=== PATIENT | female | born 1960 | race Caucasian/White ===

== ENCOUNTER 2020-07-27 08:47 | Outpatient (REF) | payer OTHER, SELFPAY ==
[2020-07-27 11:28] LABS: MANUAL DIFF FLAG NO
[2020-07-27 11:35] LABS: Basophils Percent Auto 0.7 % (0-2); Eosinophils Absolute Auto 0.2 X10*3/uL (0.0-0.4); Eosinophils Percent Auto 3.1 % (0-4); Hematocrit 39.1 % (37-47); Hemoglobin 12.6 g/dl (12.0-16.0); Imm Gran Abs Auto 0.03 X10*3/uL (0.00-0.03); Imm Gran Pct Auto 0.5 % (0.0-0.4); Lymphocytes Percent Auto 17.3 % (20-40); Mean Corpuscular HGB Conc 32.2 g/dl (31.0-35.0); Mean Corpuscular Volume 99.2 fL (80-98); Mean Platelet Volume 9.4 fL (9.4-12.3); Monocytes Absolute Auto 0.7 X10*3/uL (0.1-1.2); Monocytes Percent Auto 12.3 % (2-11); Neutrophils Absolute Auto 3.9 X10*3/uL (2.0-8.3); Neutrophils Percent Auto 66.1 % (45-73); Platelet Count 340 X10*3/uL (160-400); Red Blood Count 3.94 X10*6/uL (4.20-5.50); Red Cell Distribution Width 13.4 % (11.0-16.0); White Blood Count 5.8 X10*3/uL (4.8-10.8)
[2020-07-27 12:08] LABS: Alanine Aminotransferase 18 U/L (0-31); Albumin Level 4.2 g/dL (3.5-5.0); Alkaline Phosphatase 58 U/L (39-117); Anion Gap 12 (12-20); Aspartate Amino Transferase 23 U/L (5-31); Bilirubin Total 0.4 mg/dL (0.0-1.0); Blood Urea Nitrogen 18 mg/dL (9-16); Calcium 9.6 mg/dL (8.4-10.2); Carbon Dioxide 27 mmol/L (22-29); Chloride 105 mmol/L (96-108); Estimated Glomerular Filt Rate 58; Glucose Random 93 mg/dL (60-115); Potassium 5.1 mmol/l (3.3-5.1); Sodium 139 mmol/L (135-145); Total Protein 7.5 g/dL (6.5-8.0)
[2020-07-27 12:14] LABS: Ferritin 69 ng/mL (10-250); TSH reflex Free T4 0.82 mIU/mL (0.32-4.0)
[2020-07-27 12:53] LABS: Vitamin B12 405 pg/mL (200-900)
== END 2020-07-27 08:48 | disposition home or self-care (01) ==
LOC: HO.HMGCLDS 08:47
PROVIDERS: PCP Internal Medicine; Visit Provider Internal Medicine
DX: I10 Essential (primary) hypertension (principal); E66.01 Morbid (severe) obesity due to excess calories; Z68.41 Body mass index [BMI] 40.0-44.9, adult; R79.89 Other specified abnormal findings of blood chemistry; F33.40 Major depressive disorder, recurrent, in remission, unspecified
CPT/HCPCS: 36415; 80053; 82607; 82728; 84443; 85025

== ENCOUNTER 2020-08-08 10:25 | Outpatient (REF) | payer OTHER, SELFPAY ==
--- NOTE | 2020-08-08 | MM_ITS ---
EXAMINATION: MM SCREENING DIGITAL BREAST TOMOSYNTHESIS, BILATERAL CLINICAL INFORMATION: Screening. Asymptomatic. Family history breast cancer in grandmother. The lifetime risk of breast cancer based on the Tyrer-Cuzick Model is 10%. COMPARISON: Mammography: 08/03/2019, 04/21/2018 TECHNIQUE: Digital breast tomosynthesis is performed in both the craniocaudal and mediolateral oblique views along with computer-aided detection (CAD). Synthesized 2D images are generated from the tomosynthesis. Additional right CC view is provided. FINDINGS: There are scattered areas of fibroglandular density (ACR BI-RADS breast composition Category b). There are no significant masses, abnormal calcifications, or other abnormalities. There are some punctate round calcifications mid upper outer right breast similar to prior studies. The axilla and skin contours are unremarkable. IMPRESSION: No significant changes from prior exams. ASSESSMENT: BI-RADS 2: Benign RECOMMENDATION: Routine annual mammography screening. This patient's information was entered into a reminder system with a target due date for their next mammogram.
== END 2020-08-08 10:26 | disposition home or self-care (01) ==
LOC: HO.MAMMO 10:25
PROVIDERS: Visit Provider Internal Medicine
DX: Z12.31 Encounter for screening mammogram for malignant neoplasm of breast (principal)
CPT/HCPCS: 77063; 77067

== ENCOUNTER 2020-10-15 14:24 | Outpatient (REF) | payer OTHER, SELFPAY | END 2020-10-15 14:25 | disposition home or self-care (01) | LOC: HO.LAB 14:24 | PROVIDERS: PCP Internal Medicine; Visit Provider Internal Medicine | DX: Z20.828 Contact with and (suspected) exposure to other viral communicable diseases (principal) | CPT/HCPCS: C9803; U0003 ==

== ENCOUNTER 2020-11-02 17:03 | Outpatient (REF) | payer OTHER, SELFPAY | END 2020-11-02 17:04 | disposition home or self-care (01) | LOC: HO.LAB 17:03 | PROVIDERS: Visit Provider Internal Medicine | DX: Z20.822 Contact with and (suspected) exposure to COVID-19 (principal) | CPT/HCPCS: 36415; C9803; U0003 ==

== ENCOUNTER 2021-02-08 10:06 | Outpatient (REF) | payer OTHER, SELFPAY ==
[2021-02-08 10:16] LABS: COVID-19 Test Positive (Negative)
== END 2021-02-08 10:07 | disposition home or self-care (01) ==
LOC: HO.LAB 10:06
PROVIDERS: Visit Provider Internal Medicine
DX: Z20.822 Contact with and (suspected) exposure to COVID-19 (principal)
CPT/HCPCS: 36415; 87635; C9803

== ENCOUNTER 2022-06-14 11:02 | Outpatient (REF) | payer OTHER, SELFPAY ==
[2022-06-14 14:11] LABS: MANUAL DIFF FLAG NO
[2022-06-14 14:21] LABS: Basophils Percent Auto 0.4 % (0-2); Eosinophils Absolute Auto 0.1 X10*3/uL (0.0-0.4); Hematocrit 37.4 % (37.0-47.0); Hemoglobin 12.1 g/dl (12.0-16.0); Imm Gran Abs Auto 0.02 X10*3/uL (0.00-0.03); Imm Gran Pct Auto 0.3 % (0.0-0.4); Lymphocytes Absolute Auto 1.1 X10*3/uL (1.2-4.9); Lymphocytes Percent Auto 14.4 % (20-40); Mean Corpuscular HGB Conc 32.4 g/dl (31.0-35.0); Mean Corpuscular Hemoglobin 30.6 pg (27.0-33.0); Mean Corpuscular Volume 94.4 fL (80.0-98.0); Mean Platelet Volume 9.6 fL (9.4-12.3); Monocytes Absolute Auto 0.7 X10*3/uL (0.1-1.2); Monocytes Percent Auto 8.7 % (2-11); Neutrophils Absolute Auto 5.9 x10*3/uL (2.0-8.3); Neutrophils Percent Auto 75.2 % (45-73); Platelet Count 376 X10*3/uL (160-400); Red Blood Count 3.96 X10*6/uL (4.20-5.50); White Blood Count 7.8 X10*3/uL (4.8-10.8)
[2022-06-14 14:33] LABS: Alanine Aminotransferase 12 U/L (0-31); Albumin Level 4.1 g/dL (3.5-5.0); Alkaline Phosphatase 61 U/L (39-117); Anion Gap 15 (12-20); Aspartate Amino Transferase 20 U/L (5-31); Bilirubin Total 0.4 mg/dL (0.0-1.0); Blood Urea Nitrogen 27 mg/dL (9-16); Calcium 10.5 mg/dL (8.4-10.2); Carbon Dioxide 28 mmol/L (22-29); Chloride 101 mmol/L (96-108); Estimated Glomerular Filt Rate 47; Glucose Random 104 mg/dL (60-115); Potassium 4.4 mmol/L (3.3-5.1); Sodium 140 mmol/L (135-145); Total Protein 7.6 g/dL (6.5-8.0)
[2022-06-16 04:45] LABS: LDL Cholesterol Direct 84 mg/dL (<100)
== END 2022-06-14 11:03 | disposition home or self-care (01) ==
LOC: HO.HMGCLDS 11:02
PROVIDERS: PCP Internal Medicine; Visit Provider Internal Medicine
DX: R10.10 Upper abdominal pain, unspecified (principal); R11.10 Vomiting, unspecified
CPT/HCPCS: 36415; 80053; 83721; 85025

== ENCOUNTER → 2022-06-20 07:59 | Outpatient (BNVA) | payer OTHER, SELFPAY | PROVIDERS: PCP Internal Medicine; Referring Provider Internal Medicine; Visit Provider Internal Medicine | DX: R10.10 Upper abdominal pain, unspecified (principal); R63.4 Abnormal weight loss; R11.10 Vomiting, unspecified; M06.9 Rheumatoid arthritis, unspecified; Z98.890 Other specified postprocedural states; Z87.19 Personal history of other diseases of the digestive system | CPT/HCPCS: 99202 ==

== ENCOUNTER 2022-07-08 07:54 | Outpatient (REF) | payer OTHER, SELFPAY ==
--- NOTE | ~2022-07-08 | US_ITS ---
EXAMINATION: US ABDOMEN COMPLETE CLINICAL INFORMATION: Abdominal pain. COMPARISON: None TECHNIQUE: Real-time imaging of the abdominal viscera. FINDINGS: PANCREAS: Normal. ABDOMINAL AORTA: The proximal, mid, and distal segments are normal in caliber. INFERIOR VENA CAVA: Visualized portions are normal. LIVER: There is a small cyst in the left lobe measuring 1 x 0.6 x 0.7 cm. The liver is normal in size. The liver contour is normal. Parenchymal echogenicity is normal. There is no intrahepatic biliary duct dilatation seen. GALLBLADDER: Normal. The gallbladder is physiologically distended without evidence of stones, sludge, polyps, wall thickening or pericholecystic fluid. COMMON BILE DUCT: Normal in caliber measuring 0.3 cm in diameter. RIGHT KIDNEY: Normal. No hydronephrosis. No renal calculi or focal parenchymal lesions. The kidney measures 12 cm in maximum dimension. LEFT KIDNEY: Normal. No hydronephrosis. No renal calculi or focal parenchymal lesions. The kidney measures 11 cm in maximum dimension. SPLEEN: Normal. The spleen measures 9 cm in maximum dimension. FREE FLUID: None. US/US abdomen complete IMPRESSION: Small liver cyst otherwise unremarkable exam.
--- NOTE | ~2022-07-08 | US_ITS ---
EXAMINATION: ULTRASOUND SMA CLINICAL INFORMATION: Abdominal pain COMPARISON: None TECHNIQUE: Grayscale and color evaluation of the mesenteric vessels including waveform spectral analysis. Imaging of the celiac axis was done with the patient in supine and upright positions. FINDINGS: The abdominal aorta is normal in caliber. Peak Systolic velocity measures 116 cm per second proximal to the SMA and 123 cm/s distal to the SMA. Celiac artery peak systolic velocity is elevated with inspiration in the supine position measuring 243 cm/s. This with inspiration with the patient in the erect position measuring 154 cm/s. SMA peak systolic velocities are normal measuring 130, 141 and 99 cm/s proximally, in the midportion and distally. PAULINA peak systolic velocity is normal measuring 139 cm/s. Splenic artery systolic velocity is normal measuring 154 cm/s. Hepatic artery peak systolic velocity is normal measuring 104 cm/s. US/US SMA IMPRESSION: Increased peak systolic velocity in the celiac artery which decreases with the patient upright questionable for celiac artery compression syndrome. Otherwise normal mesenteric arterial ultrasound exam.
== END 2022-07-08 07:55 | disposition home or self-care (01) ==
LOC: HO.HMGCX 07:54
PROVIDERS: Absent Provider Internal Medicine; PCP Internal Medicine; Visit Provider Internal Medicine
DX: R10.10 Upper abdominal pain, unspecified (principal); R11.10 Vomiting, unspecified; R63.4 Abnormal weight loss
CPT/HCPCS: 76700; 93976

== ENCOUNTER 2022-07-14 11:10 | Day surgery (SDC) | payer OTHER, SELFPAY ==
[2022-07-14 08:27] VITALS: BMI 36.8
[2022-07-14 11:31] VITALS: BP 119/90; PULSE 76; RESP 18; TEMP 36.1; O2SAT 98
[2022-07-14] MEDS: Lactated Ringers 1,000 ML 50 ML IVCONT (11:58)
--- NOTE | 2022-07-14 12:41 | MHC.SHP ---
Pre-Procedural Eval Section A Date of Service: 07/14/22 The patient is an INPATIENT: No The History & Physical has been completed within 30 days and I have reviewed it.: Yes Section B Chief Complaint: Abdominal pain, weight loss, personal hx of polyps Allergies: Allergies Allergy/AdvReac Type Severity Reaction Status Date / Time No Known Allergies Allergy Verified 06/20/22 08:07 Plan Diagnosis/Plan: Unchanged I have reviewed the history and physical and performed a pertinent physical examination on my patient. No changes have occurred unless specified.
--- NOTE | 2022-07-14 13:49 | HO.ANESPROP2 ---
HPI - Anesthesia Eval Consult details Narrative: 62 F for egd and colonoscopy FOR[facility] Active Problems Active Problems: All Active Problems (Updated 06/14/22 @ 11:02 by Benson Marroquin MD) Recurrent vomiting (Acute) Upper abdominal pain (Acute) Foul smelling urine (Acute) Vitamin D deficiency (Acute) Acute rheumatic arthritis (Acute) Hypertension, essential (Acute) Depression, major, recurrent (Acute) Past Medical History Medical History Acute rheumatic arthritis Depression, major, recurrent Hypertension, essential Vitamin D deficiency Family History Family History Father Myocardial infarction Mother Hyperlipidemia Brother No problems noted. Sister No problems noted. Family history of problems with anesthesia: No Surgical History Surgical History History of foot surgery History of Problems with Anesthesia: No Social History Social History Housing: House Alcohol intake: current Alcohol intake frequency: holidays/special occasions only Patient Tobacco Use Status: Former Tobacco user Tobacco use type: Cigarette Years Smoked: 15 years e-Cigarette/Vaping Use: Never Used Are you DNR?: No Advance Directives: No Advance Directives Information Provided: Yes Recently lost weight without trying: No Nutrition Risks: No Nutritional Risk Current occupational status: unemployed Cognitive needs: No Hearing needs: No Vision needs: Yes Meds Allergies Allergy/AdvReac Type Severity Reaction Status Date / Time No Known Allergies Allergy Verified 06/20/22 08:07 Active Medications: Current Medications Lactated Ringer's (Lr) 1,000 mls @ 50 mls/hr IVCONT .Q20H IVORY Last Admin: 07/14/22 11:58 Dose: 50 mls/hr Home Medications Medication Instructions Recorded Confirmed Last Taken Type cyclobenzaprine 10 mg tablet 10 mg PO BEDTIME 08/14/20 07/14/22 07/10/22 History folic acid 1 mg tablet 1 mg PO DAILY 08/14/20 07/14/22 07/14/22 History hydroxychloroquine 200 mg tablet 200 mg PO DAILY 08/14/20 07/14/22 07/14/22 History tofacitinib 5 mg tablet 5 mg PO BID 08/14/20 07/14/22 07/14/22 History tramadol 50 mg tablet 50 - 100 mg PO BEDTIME PRN pain 06/20/22 07/14/22 07/10/22 History Exam Exam Date and Time: July 14, 2022 1349 Height,Weight and Vital Signs: Height 5 ft 7 in Weight 235 lb Last Vital Signs Temp 97 F 07/14/22 11:31 Pulse 76 07/14/22 11:31 Resp 18 07/14/22 11:31 BP 119/90 H 07/14/22 11:31 Pulse Ox 98 07/14/22 11:31 O2 Del Method 07/14/22 11:31 Airway Mallampati Class: III TM Dist: >3cm Neck ROM: Full Loose/Missing/Broken Teeth: Yes Assessment and Plan Assessment Anesthesia Assessment: Anesthesia Plan Discussed and Chart Reviewed Final Anesthetic Review Family History of Problems with Anesthesia: No History of Problems with Anesthesia: No NPO: Yes ASA Class: II Final Preanesthetic Review: No Changes in Pt Med Stat, Meds/Allgs Chart Reviewed, Consent Obtained/Reviewed and Anes Risks/Benef Reviewed Patient Risk: Low Procedure Risk: Low Anesthetic Plan Anesthetic Plan: MAC: Disposition: Standard PACU
--- NOTE | 2022-07-14 13:50 | P.OP_ITS ---
Operative Note Operative Note Date of Service: 07/14/22 Narrative: Procedure: Esophagogastroduodenoscopy and colonoscopy Endoscopist: Johanny Dye MD Indication: Abdominal pain, weight loss, personal hx of polyps Anesthesia Provider: Dr Helio Matt Anesthesia Type: MAC ?? EGD Procedure:?? The procedure, indications, preparation and potential complications were reviewed with the patient, who indicated understanding and gave written informed consent to proceed. A physical exam was performed. The endoscope was introduced through the mouth, and advanced to the second part of duodenum. The mucosa was carefully examined on slow withdrawal of the endoscope. The patient tolerated the procedure well. There were no immediate complications.? ? EGD Findings:? * Esophagus:? The Z line was at 35 cm. The Z line was irregular with two salmon colored tongues suspicious for Willett's esophagus C0M1. Cold forceps biopsies were taken from these tongues at 34 cm and sent for pathology. There was a small 3 cm hiatal hernia, diaphragmatic pinch was at 38 cm * Stomach:? Normal mucosa was noted in the stomach. Random gastric biopsies were taken to rule out H Pylori infection. * Duodenum:? There was 1 cm [place] 1b ulcer noted in posterior duodenal bulb causing edema and narrowing of the sweep. The sweep could be traversed with the scope using water jet as a buffer. The scope was removed and distal cap was attached for better visualisation of the ulcer. It was then reintroduced and bipolar epinephrine injection was attempted through the injector needle of gold probe but could not be done due to equipment malfunction. Bipolar cautery was applied to the oozing vessel with hemostasis. The ulcer bed was agitated with water jet to confirm no further bleeding. Colonoscopy procedure: The patient then turned around for the colonoscopy. A digital rectal exam was performed which was normal. The colonoscope was then inserted through the anus and advanced through the colon to the cecum at 60 cm. Mucosa was carefully examined under high definition white light as the instrument was slowly withdrawn in a retrograde panoramic fashion. Retroflexion was performed in rectum. The procedure was not difficult. There were no immediate obvious complications. The quality of the prep was BBPS: 3+3+3 = excellent Withdrawal time 8 minutes. Limitations: No limitations. Findings: Mucosa: Normal to cecum. Protruding lesions: * Medium external hemorrhoids without stigmata of recent bleeding. Excavated lesions: * Small mouthed diverticulosis of left colon. Other findings: * Evidence of colo-colonic anastomosis in sigmoid colon. 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 ? Impressions:? * Suspicious for Willett's esophagus (biopsy) * Hiatal hernia * Normal stomach (biopsy) * [place] 1b duodenal bulb ulcer (cautery) * Surgical anastomosis in sigmoid colon * Mild left sided diverticulosis * Hemorrhoids ?? Recommendations:?? * Follow biopsy results. Our office will call or send a letter with results within 7-10 days. * INCREASE omeprazole. Take 80mg BID for 3 days and then 40mg BID for 8 weeks * Patient has also been given pantoprazole 80mg IVP and liquid carafate 1g in post op * Liquid diet today and advance to regular diet tomorrow if no GIB * Instructions to return to ER for any GI bleeding carefully reviewed with patient * If H pylori +, patient will be prescribed eradication therapy followed by test of cure. * Avoid NSAIDs. * Colonoscopy in 7-10 years for CRC screening * Patient has also been referred to Vascular surgery for ? celiac stenosis based on duplex study. Will follow up. * Above has been reviewed with the patient. Educational hand outs were provided at discharge.
[2022-07-14 13:55] VITALS: BP 140/54; PULSE 69; RESP 20; TEMP 36.4; O2SAT 98
[2022-07-14 14:25] VITALS: BP 155/82; PULSE 63; RESP 18; TEMP 36.4; O2SAT 95
[2022-07-14] MEDS: Pantoprazole Sodium 40 MG/10 ML VIAL 80 MG IVPUSH (14:25)
[2022-07-14] MEDS: Sucralfate Oral Suspension 1 GM/10 ML ORAL.SUSP PO (14:36)
== END 2022-07-14 14:56 | disposition home or self-care (01) ==
PROVIDERS: PCP Internal Medicine; Visit Provider Internal Medicine
PROC: (CPT 45378; principal; 2022-07-14 12:40)
DX: R10.10 Upper abdominal pain, unspecified (principal); Z86.010 Personal history of colon polyps; K57.30 Diverticulosis of large intestine without perforation or abscess without bleeding; Z90.49 Acquired absence of other specified parts of digestive tract; Z98.0 Intestinal bypass and anastomosis status; K64.4 Residual hemorrhoidal skin tags; K26.9 Duodenal ulcer, unspecified as acute or chronic, without hemorrhage or perforation; R11.10 Vomiting, unspecified; Z87.19 Personal history of other diseases of the digestive system; R63.4 Abnormal weight loss; Z68.36 Body mass index [BMI] 36.0-36.9, adult; K44.9 Diaphragmatic hernia without obstruction or gangrene; I10 Essential (primary) hypertension; M06.9 Rheumatoid arthritis, unspecified; E55.9 Vitamin D deficiency, unspecified; F33.9 Major depressive disorder, recurrent, unspecified; Z79.899 Other long term (current) drug therapy; Z87.891 Personal history of nicotine dependence
CPT/HCPCS: 45378; 43239; 88305; 88342; J0171

== ENCOUNTER → 2022-07-25 09:25 | Outpatient (BNVA) | payer OTHER, SELFPAY | PROVIDERS: PCP Internal Medicine; Visit Provider Internal Medicine | DX: K26.9 Duodenal ulcer, unspecified as acute or chronic, without hemorrhage or perforation (principal); K22.70 Barrett's esophagus without dysplasia; I77.1 Stricture of artery; Z98.890 Other specified postprocedural states | CPT/HCPCS: 99212 ==

== ENCOUNTER → 2022-08-18 10:02 | Outpatient (BNVA) | payer OTHER, SELFPAY | PROVIDERS: PCP Internal Medicine; Visit Provider Surgery Vascular Surgery | DX: R10.10 Upper abdominal pain, unspecified (principal) | CPT/HCPCS: 99202 ==

== ENCOUNTER 2023-01-21 10:56 | Outpatient (REF) | payer OTHER, SELFPAY ==
[2023-01-21 12:25] LABS: Hematocrit 35.5 % (37.0-47.0); Hemoglobin 11.4 g/dl (12.0-16.0); Mean Corpuscular HGB Conc 32.1 g/dl (31.0-35.0); Mean Corpuscular Hemoglobin 30.7 pg (27.0-33.0); Mean Corpuscular Volume 95.7 fL (80.0-98.0); Mean Platelet Volume 9.3 fL (9.4-12.3); Platelet Count 370 X10*3/uL (160-400); Red Blood Count 3.71 X10*6/uL (4.20-5.50); Red Cell Distribution Width 13.5 % (11.0-16.0); White Blood Count 5.4 X10*3/uL (4.8-10.8)
[2023-01-21 12:55] LABS: Alanine Aminotransferase 36 U/L (0-31); Albumin Level 3.9 g/dL (3.5-5.0); Alkaline Phosphatase 69 U/L (39-117); Anion Gap 13 (12-20); Aspartate Amino Transferase 43 U/L (5-31); Bilirubin Total 0.5 mg/dL (0.0-1.0); Blood Urea Nitrogen 16 mg/dL (9-16); Calcium 9.6 mg/dL (8.4-10.2); Carbon Dioxide 28 mmol/L (22-29); Chloride 105 mmol/L (96-108); Estimated Glomerular Filt Rate > 60; Glucose Random 83 mg/dL (60-115); Potassium 5.2 mmol/L (3.3-5.1); Sodium 141 mmol/L (135-145); Total Protein 7.1 g/dL (6.5-8.0)
[2023-01-22 15:44] LABS: LDL Cholesterol Direct 111 mg/dL (<100)
== END 2023-01-21 10:57 | disposition home or self-care (01) ==
LOC: HO.HMGCLDS 10:56
PROVIDERS: Absent Provider Internal Medicine; PCP Internal Medicine; Visit Provider Internal Medicine
DX: F33.9 Major depressive disorder, recurrent, unspecified (principal); I00 Rheumatic fever without heart involvement; K26.9 Duodenal ulcer, unspecified as acute or chronic, without hemorrhage or perforation; I10 Essential (primary) hypertension
CPT/HCPCS: 36415; 80053; 83721; 85027

== ENCOUNTER → 2023-01-23 09:00 | Outpatient (BNVA) | payer OTHER, SELFPAY | PROVIDERS: PCP Internal Medicine; Visit Provider Internal Medicine | DX: K26.9 Duodenal ulcer, unspecified as acute or chronic, without hemorrhage or perforation (principal); K22.70 Barrett's esophagus without dysplasia; I77.1 Stricture of artery; R79.89 Other specified abnormal findings of blood chemistry | CPT/HCPCS: 99212 ==

== ENCOUNTER 2024-04-19 14:50 | Outpatient (AMB) | payer OTHER, SELFPAY ==
--- NOTE | 2024-04-19 14:54 | A.OFFPC_ITS ---
Vital Signs 04/19/24 14:59 Height 5 ft 7 in Weight 279 lb BMI 43.7 BP 130/90 H Blood Pressure Location Rt brachial Position Sitting Pulse 94 Pulse Source Pulse Oximeter Pulse Oximetry (%) 98 Oxygen Delivery Method Room Air Intake Visit Reasons: Annual PE Allergies No Known Allergies Allergy (Verified 04/19/24 14:59) Medication List - Last Reconciled 04/19/24 by Benson Marroquin MD atenolol 25 mg PO DAILY 15 days cyclobenzaprine 10 mg PO BEDTIME PRN folic acid 1 mg PO DAILY hydroxychloroquine 200 mg PO DAILY methotrexate sodium 8 mg PO QWEEK multivitamin 1 tab PO DAILY omeprazole 20 mg PO DAILY paroxetine HCl 20 mg PO QAM 15 days tofacitinib 5 mg PO BID tramadol 50 - 100 mg PO BEDTIME PRN Tobacco use date assessed: 04/19/24 Dental Screening Dental Screen Date: 04/19/24 Did you have a dental visit in the last 12 months?: Yes Did you have a dental problem in the last 6 months where you did not have access to dental care?: No Was dental information given to patient?: Patient has dentist HPI Annual PE HPI Details Patient is 64-year-old female came in for physical exam Patient was last seen November of last year she was supposed to come in for follow-up in six-month but she did not Only medication from this office is atenolol 25 mg and paroxetine for anxiety/depression Blood pressure is 130/90 with pulse of 94 Last visit with assistant manager pt Dr. Chang was 12 of April Consultation reviewed, labs were ordered through Rheumatology Colonoscopy was June of [address] Dye Gastroenterology, patient also had EGD done at that time She is due for OBGYN visit, patient says that she will book her own appointment Due for mammogram, order placed Last set of lab in the chart from this office is from January of last year her potassium was 5.2 at that time Her other medications are omeprazole 20 mg from Gastroenterology Cyclobenzaprine 10 mg at bedtime folic acid hydrochloroquine 200 mg daily Methotrexate 8 mg once a week from Rheumatology Patient is morbidly obese with BMI of 43.7 having difficulty losing weight Patient have varicose veins, she has started having swelling of her ankles left more than right I have sent frusemide 20 mg tablet patient may take that as needed. FORMERLY [facility] Medical History Vitamin D deficiency Acute rheumatic arthritis Hypertension, essential Depression, major, recurrent Surgical History Hx of colonoscopy History of esophagogastroduodenoscopy (EGD) History of foot surgery Family History Father Myocardial infarction Mother Hyperlipidemia Brother No problems noted. Sister No problems noted. Paternal Grandfather Colon cancer Social History Housing: House Alcohol intake: current Alcohol intake frequency: holidays/special occasions only Patient Tobacco Use Status: Former Tobacco user Tobacco use type: Cigarette Years Smoked: 15 years e-Cigarette/Vaping Use: Never Used service: No Current occupational status: unemployed Cognitive needs: No Hearing needs: No Vision needs: Yes Questionnaire PHQ-9 Over the last 2 weeks, how often have you been bothered by any of the following problems? 85907 - PHQ-9 Billing: Patient declined-do not bill Source: Developed by Drs. Steve Birmingham, Desiree Meek, Waqar St and colleagues, with an educational gi from [employer]. Thrive Questionnaire Date Thrive assessed: 12/14/22 AUDIT C Alcohol Use Questionnaire (AUDIT-C) 1. How often do you have a drink containing alcohol?: Never 3. How often do you have six or more drinks on one occasion?: Never Total Score: 0 Score Reviewed/Action Taken: No DESTINY-7 AMB Questionnaire DESTINY-7 Date DESTINY - 7 assessed: 12/14/22 Source: Developed by Drs. Steve Birmingham, Waqar Brown and colleagues, with an educational gi from [employer]. Review of Systems Const Denies chills, Denies fever(s) and Denies headache(s) Eyes Denies blurry vision ENT Denies headache(s), Denies nasal discharge, Denies nasal obstruction, Denies odynophagia and Denies sinus pain Card Denies chest pain at rest and Denies chest pain with activity Resp Denies cough and Denies hemoptysis GI Denies diarrhea, Denies odynophagia, Denies vomiting and Denies hematemesis Reports as per HPI Musc Denies abnormal gait Skin/Breast Reports as per HPI Neuro Denies Neuro-related abnormal movements, Denies Abnormal speech present, Denies abnormal gait, Denies headache(s) and Denies Sensory deficit (Neuro) Psych Denies mood swings and Denies paranoia Endo Reports as per HPI Sean/Lymph Reports as per HPI Aller/Immun Reports as per HPI Physical exam (Primary Care) Vital Signs: Last Vital Signs Pulse 94 04/19/24 14:59 BP 130/90 H 04/19/24 14:59 Pulse Ox 98 04/19/24 14:59 Oxygen Delivery Method Room Air 04/19/24 14:59 BMI result Body Mass Index 43.7 Tobacco/Smoking Status: Tobacco use Status Tobacco use date assessed 04/19/24 04/19/24 15:02 Patient Tobacco Use Status Former Tobacco user 04/19/24 14:55 Tobacco use type Cigarette 04/19/24 14:55 e-Cigarette/Vaping Use Never Used 04/19/24 14:55 Thrive Assessment: Date of Thrive Assessment Date Thrive assessed 12/14/22 04/19/24 14:55 Const General: cooperative, comfortable and no acute distress Orientation/consciousness: patient oriented x3 HENMT Head: Yes normocephalic and Yes atraumatic Eyes General: appearance normal, both eyes and all related structures Pupils: Equal, round and reactive pupils present EOM: EOMs intact bilaterally Neck Neck: Yes supple and No lymphadenopathy Thyroid: Thyroid normal Lymphatic: no lymphadenopathy noted Resp Effort & Inspection: normal respiratory effort and able to speak in complete sentences Auscultation: clear to auscultation bilaterally Cardio Heart sounds: S1 normal heart sound present and S2 normal heart sound present GI Palpation (GI): Soft to palpation and nontender Auscultation: normal bowel sounds General: Yes no CVA tenderness Back/Spine/Pelvis Back: no CVA tenderness Skin General skin exam: elasticity normal and turgor normal Neuro General: patient oriented x3 and gait normal Cranial nerves: Yes Equal, round and reactive pupils present Speech: No Abnormal speech present Sensory Exam: No Sensory deficit (Neuro) Coordination: tandem gait normal and Romberg test negative Extrem Other: Superficial visible varicosities present both side, mild swelling noticed left ankle Assessment and Plan Assessment & Plan (1) Encounter for general adult medical examination with abnormal findings: Code(s): Z00.01 - Encounter for general adult medical examination with abnormal findings (2) Hypertension, essential: Code(s): I10 - Essential (primary) hypertension (3) Depression, major, recurrent: Code(s): F33.9 - Major depressive disorder, recurrent, unspecified Qualifiers: Active/Remission status: in full remission Qualified Code(s): F33.42 - Major depressive disorder, recurrent, in full remission (4) Rheumatoid arthritis: Code(s): M06.9 - Rheumatoid arthritis, unspecified Qualifiers: Rheumatoid arthritis location: other site Rheumatoid factor presence: unspecified presence Qualified Code(s): M06.9 - Rheumatoid arthritis, unspecified (5) Barretts esophagus: Code(s): K22.70 - Willett's esophagus without dysplasia Qualifiers: Willett's esophagus type: with dysplasia of unspecified degree Qualified Code(s): K22.719 - Willett's esophagus with dysplasia, unspecified (6) Morbid obesity due to excess calories: Code(s): E66.01 - Morbid (severe) obesity due to excess calories (7) Asymptomatic superficial varicosities of both lower extremities: Code(s): I83.93 - Asymptomatic varicose veins of bilateral lower extremities (8) Edema of left ankle: Code(s): M25.472 - Effusion, left ankle Plan Patient is 64-year-old female came in for physical exam Patient was last seen November of last year she was supposed to come in for follow-up in six-month but she did not Only medication from this office is atenolol 25 mg and paroxetine for anxiety/depression Blood pressure is 130/90 with pulse of 94 Last visit with assistant manager pt Dr. Chang was 12 of April Consultation reviewed, labs were ordered through Rheumatology Colonoscopy was June of [address] Dye Gastroenterology, patient also had EGD done at that time She is due for OBGYN visit, patient says that she will book her own appointment Due for mammogram, order placed Last set of lab in the chart from this office is from January of last year her potassium was 5.2 at that time Her other medications are omeprazole 20 mg from Gastroenterology Cyclobenzaprine 10 mg at bedtime folic acid hydrochloroquine 200 mg daily Methotrexate 8 mg once a week from Rheumatology Patient is morbidly obese with BMI of 43.7 having difficulty losing weight Patient have varicose veins, she has started having swelling of her ankles left more than right I have sent frusemide 20 mg tablet patient may take that as needed. Orders: Orders MM tomosynthesis screening BI Today Z12.31 - Encounter for screening mammogram for malignant neoplasm of breast Medications: New furosemide 20 mg PO QAM PRN 30 tabs 0RF Ankle swelling 30 days Changed From atenolol 25 mg PO DAILY 15 days 15 tabs 0RF I10 - Essential (primary) hypertension To atenolol 25 mg PO DAILY 90 tabs 1RF 90 days I10 - Essential (primary) hypertension From paroxetine HCl 20 mg PO QAM 15 days 15 tabs 0RF F33.9 - Major depressive disorder, recurrent, unspecified To paroxetine HCl 20 mg PO QAM 90 tabs 1RF 90 days F33.9 - Major depressive disorder, recurrent, unspecified Coding Level of Care Code Est Pt Level 3 (74389) Est Pt Prev Care 40-64y(18252) Diagnoses Encounter for general adult medical examination with abnormal findings Z00.01 Hypertension, essential I10 Recurrent major depressive disorder, in full remission F33.42 Active/Remission status: in full remission Rheumatoid arthritis of other site, unspecified whether rheumatoid factor present M06.9 Rheumatoid arthritis location: other site Rheumatoid factor presence: unspecified presence Willett's esophagus with dysplasia K22.719 Willett's esophagus type: with dysplasia of unspecified degree Morbid obesity due to excess calories E66.01 Asymptomatic superficial varicosities of both lower extremities I83.93 Edema of left ankle M25.472
[2024-04-19 14:59] VITALS: BP 130/90; PULSE 94; O2SAT 98; BMI 43.7
== END 2024-04-19 15:21 | disposition home or self-care (01) ==
PROVIDERS: PCP Internal Medicine; Visit Provider Internal Medicine
DX: Z00.01 Encounter for general adult medical examination with abnormal findings (principal); I83.93 Asymptomatic varicose veins of bilateral lower extremities; F33.42 Major depressive disorder, recurrent, in full remission; M06.9 Rheumatoid arthritis, unspecified; I10 Essential (primary) hypertension; E66.01 Morbid (severe) obesity due to excess calories; K22.719 Barrett's esophagus with dysplasia, unspecified; M25.472 Effusion, left ankle
CPT/HCPCS: 99213; 99396

== ENCOUNTER 2024-04-29 17:14 | Emergency (ER) | payer OTHER, SELFPAY ==
--- NOTE | ~2024-04-29 | XR_ITS ---
EXAMINATION: XR FINGER, LEFT CLINICAL INFORMATION: Pain in fifth digit COMPARISON: None available. TECHNIQUE: Three views of the left small finger. FINDINGS: The bones are normal. No fracture. Alignment is anatomic. Joint spaces are maintained. There is soft tissue swelling of the fifth digit. XR/XR finger LT min 2V IMPRESSION: Soft tissue swelling of the fifth digit.
[2024-04-29 17:44] VITALS: BP 172/79; PULSE 74; RESP 19; TEMP 36.6; O2SAT 97; BMI 43.1
== END 2024-04-29 19:22 | disposition left against medical advice (07) ==
PROVIDERS: Emergency Provider Emergency Medicine; PCP Internal Medicine
DX: M79.646 Pain in unspecified finger(s) (principal)
CPT/HCPCS: 73140; 99281

== ENCOUNTER 2024-05-07 08:17 | Outpatient (REF) | payer OTHER, SELFPAY | END 2024-05-07 08:18 | disposition home or self-care (01) | LOC: HO.MAMMO 08:17 | PROVIDERS: PCP Internal Medicine; Visit Provider Internal Medicine | DX: Z12.31 Encounter for screening mammogram for malignant neoplasm of breast (principal) | CPT/HCPCS: 77063; 77067 ==

== ENCOUNTER → 2024-05-07 08:30 | Outpatient (BNV) | payer OTHER, SELFPAY | PROVIDERS: PCP Internal Medicine; Visit Provider Radiology Diagnostic Radiology | DX: Z12.31 Encounter for screening mammogram for malignant neoplasm of breast (principal) | CPT/HCPCS: 77063; 77067 ==

== ENCOUNTER 2024-10-25 14:54 | Outpatient (AMB) | payer OTHER, SELFPAY ==
[2024-10-25 14:56] VITALS: BP 132/82; PULSE 76; O2SAT 96; BMI 42.3
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
== END 2024-10-25 15:12 | disposition home or self-care (01) ==
PROVIDERS: PCP Internal Medicine; Visit Provider Internal Medicine
DX: M79.644 Pain in right finger(s) (principal); F33.42 Major depressive disorder, recurrent, in full remission; E66.01 Morbid (severe) obesity due to excess calories; Z68.41 Body mass index [BMI] 40.0-44.9, adult; M06.9 Rheumatoid arthritis, unspecified; I10 Essential (primary) hypertension; E55.9 Vitamin D deficiency, unspecified; R79.89 Other specified abnormal findings of blood chemistry

== ENCOUNTER → 2024-10-25 14:54 | Outpatient (BNVA) | payer OTHER, SELFPAY | PROVIDERS: PCP Internal Medicine; Visit Provider Internal Medicine | DX: M79.644 Pain in right finger(s) (principal); I10 Essential (primary) hypertension; F33.42 Major depressive disorder, recurrent, in full remission; E55.9 Vitamin D deficiency, unspecified; R79.89 Other specified abnormal findings of blood chemistry; M06.9 Rheumatoid arthritis, unspecified; E66.01 Morbid (severe) obesity due to excess calories; Z68.41 Body mass index [BMI] 40.0-44.9, adult | CPT/HCPCS: 96127; 99212 ==

== ENCOUNTER 2024-11-22 14:09 | Outpatient (AMB) | payer OTHER, SELFPAY ==
[2024-11-22 14:13] VITALS: BMI 42.3
--- NOTE | 2024-11-22 14:13 | A.OFFVIS_ITS ---
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 Patient has a bump on her right DIP joint. She reports she has other similar ones on other fingers but not as painful as this one. Patient denies numbness and tingling. Reports left middle finger locking. Has had trigger finger injections in the past. Denies any prior injuries or surgeries to the right hand. 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 The patient reports that this nodule is minimally tender to palpation. Denies any locking or catching of the right middle finger. denies numbness or tingling of the ri ght hand. No other acute complaints or concerns at this time. [facility] Medical History Vitamin D deficiency Acute rheumatic arthritis Hypertension, essential Depression, major, recurrent Surgical History Hx of colonoscopy History of esophagogastroduodenoscopy (EGD) History of foot surgery Family History Father Myocardial infarction Mother Hyperlipidemia Brother No problems noted. Sister No problems noted. 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 Neuro: Normal sensation of the tips of all digits of the right hand at this time Vascular: Cap refill brisk Pain: Minimal tenderness to palpation about nodule the base of the right middle finger No pain with range of motion of the right hand ROM: Patient is able to make a closed fist and extend all digits of the right hand fully and without difficulty Skin: No lacerations or abrasions. General: There is noted to be a small, approximately 0.5 cm in diameter nodule noted just proximal to the A1 matteo of the right middle finger No ecchymosis, erythema, or evidence of infection. Psych: Appears grossly normal Affect normal Attitude cooperative Assessment & Plan Assessment & Plan (1) Ganglion cyst of finger of right hand: Code(s): M67.441 - Ganglion, right hand Category: Medical Plan 1. Retinacular cyst of right middle finger Patient is educated about this condition Patient is educated about the typical treatment course At this time, patient states that if there is no acute intervention needed, she would not like any Patient feels that she can live with this nodule without the need for aspiration or surgery Patient can follow-up with us if she feels that she would like to have some intervention performed on this mass, or with any other acute concerns Coding Level of Care Code Est Pt Level 3 (86565) Diagnoses Ganglion cyst of finger of right hand M67.441
== END 2024-11-22 14:41 | disposition home or self-care (01) ==
PROVIDERS: PCP Internal Medicine
CPT/HCPCS: 99213

== ENCOUNTER → 2024-11-22 14:09 | Outpatient (BNVA) | payer OTHER, SELFPAY | PROVIDERS: PCP Internal Medicine | DX: M67.441 Ganglion, right hand (principal) | CPT/HCPCS: 99212 ==

== ENCOUNTER 2025-01-03 13:10 | Outpatient (AMB) | payer OTHER, SELFPAY ==
[2025-01-03 13:12] VITALS: BP 131/56; PULSE 68; BMI 39.4
--- NOTE | 2025-01-03 13:12 | A.OFFVIS_ITS ---
Vital Signs 01/03/25 13:12 Height 5 ft 7 in Weight 251 lb 5.231 oz BMI 39.4 BP 131/56 L Blood Pressure Location Lt brachial Position Sitting Pulse 68 Intake Visit Reasons: f/u gerd Intake Note: Veronica presents in the office as a follow up for GERD. CC: She states that she is feeling good and no issues today! [employer] Helper Required: No Allergies No Known Allergies Allergy (Verified 01/03/25 13:15) HPI Comments Details: This is a 62-year-old female with past medical history of rheumatoid arthritis, depression, hypertension, who is presenting for follow up for abdominal pain. Initially seen in office 05/2022: History was obtained from the patient, who states that her pain started back in April. Describes it as epigastric dull pain that is also present in her right upper quadrant, does not radiate anywhere else, associated with nausea and vomiting, loss of appetite. Was given a 4 week trial of omeprazole at that time which helped. However, couple weeks after going off the omeprazole, the pain returned. Seems to get triggered by food, started proximally to 3 hours after. There has been a couple of episodes where she woke up in her sleep from the pain as well. Her vomiting has been nonbloody and nonbilious. She does not report any change in her bowel habits. She does note almost 20 lb weight loss in the past 2 months, which has been unintentional. She was also seen by her primary care provider last week for the same. She was started on omeprazole 20 mg b.i.d and has been helpful so far. Labs from last week show normal white count and hemoglobin. Chem 7 with mild CAMERON creatinine 1.1, previous baseline of 0.9. He was on to have mild hypercalcemia at 10.5. With normal albumin. An ultrasound has also been ordered by her primary care provider. Patient's prior colonoscopy was done in 2013. She was asked to return in 5 years. Had complicated diverticulitis in 2017 requiring partial colon resection, admitted in [facility] at that time. Patient is unsure of the side and extent of colon resection. Will obtain records. 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 Vascular surgery referral sent last month. EGD/[place]: Large duodenal ulcer s/p cautery and high dose PPI. Path: No H pylori. Willett's eso without dysplasia. Normal colo sans surgical anastomosis. 07/25/22 Report complete resolution of abdominal pain since the thermal therapy for ulcer and treatment with high dose PPI. Has had significant return of appetite and not having any epigastric pain post prandial or otherwise. After taking omeprazole 80 mg b.i.d. for 3 days, she went down to taking omeprazole 40 mg once daily due to miscommunication about the dosing. Of note, she also interrupted MTX that she takes for rheumatoid arthritis as she was told about possible interaction by her pharmacist. She has not heard from vascular surgery office as of yet for appointment. 01/23/23: Seen by Vascular surgery. Elected to hold off further work up as her sx resolved with resolution of duodenal ulcer. No gastrointestinal complaints today. No abdominal pain, nausea, vomiting, changes in appetite, unintentional weight loss. No changes to stool. Blood work reviewed. Transaminases noted to be elevated. Patient reports increase in dose of methotrexate 3 weeks ago. 01/03/25: Here for routine follow up. No active issues. Wasnt sure if needed to stay established with this office for omeprazole refills. Otherwise, doing well. LFTs reviewed from [facility] [place] Sep 2023 and normal. Overdue for CBC - already ordered by PCP. For CRC screening - next colo due [id number]. [facility] Medical History Vitamin D deficiency Acute rheumatic arthritis Hypertension, essential Depression, major, recurrent Surgical History Hx of colonoscopy History of esophagogastroduodenoscopy (EGD) History of foot surgery Family History Father Myocardial infarction Mother Hyperlipidemia Brother No problems noted. Sister No problems noted. 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 Continues on omeprazole 20 - will need this indefinitely due to hx of BE as well. Future refills can be taken over by PCP (2) Barretts esophagus: Code(s): K22.70 - Willett's esophagus without dysplasia Category: Medical Qualifiers: Willett's esophagus type: with dysplasia of unspecified degree Qualified Code(s): K22.719 - Willett's esophagus with dysplasia, unspecified Plan: No dysplasia noted on biopsies. Repeat endoscopy will be indicated in 06/2025. Reminder set. (3) Encounter for colorectal cancer screening: Code(s): Z12.11 - Encounter for screening for malignant neoplasm of colon; Z12.12 - Encounter for screening for malignant neoplasm of rectum Plan: Due in . Plan EGD to be booked in fall 2024, otherwise PRN follow up. Orders: Orders Ferritin Today K26.9 - Duodenal ulcer, unspecified as acute or chronic, without hemorrhage or perforation Coding Level of Care Code Est Pt Level 3 (67879) Diagnoses Duodenal ulcer K26.9 Willett's esophagus with dysplasia K22.719 Willett's esophagus type: with dysplasia of unspecified degree Encounter for colorectal cancer screening Z12.11; Z12.12
== END 2025-01-03 13:58 | disposition home or self-care (01) ==
LOC: HO.HGI 13:10
PROVIDERS: PCP Internal Medicine; Visit Provider Internal Medicine
DX: K26.9 Duodenal ulcer, unspecified as acute or chronic, without hemorrhage or perforation (principal); K22.719 Barrett's esophagus with dysplasia, unspecified
CPT/HCPCS: 99213

== ENCOUNTER → 2025-01-03 13:10 | Outpatient (BNVA) | payer OTHER, SELFPAY | PROVIDERS: PCP Internal Medicine; Visit Provider Internal Medicine | DX: K21.9 Gastro-esophageal reflux disease without esophagitis (principal); K26.9 Duodenal ulcer, unspecified as acute or chronic, without hemorrhage or perforation; K22.719 Barrett's esophagus with dysplasia, unspecified; Z87.891 Personal history of nicotine dependence | CPT/HCPCS: 99212 ==

== ENCOUNTER 2025-04-05 09:18 | Outpatient (REF) | payer BC, SELFPAY ==
[2025-04-05 11:14] LABS: MANUAL DIFF FLAG NO
[2025-04-05 11:24] LABS: Basophils Percent Auto 0.8 % (0-2); Eosinophils Absolute Auto 0.1 X10*3/uL (0.0-0.4); Eosinophils Percent Auto 1.5 % (0-4); Hematocrit 37.2 % (37.0-47.0); Hemoglobin 11.9 g/dl (12.0-16.0); Imm Gran Abs Auto 0.02 X10*3/uL (0.00-0.03); Imm Gran Pct Auto 0.4 % (0.0-0.4); Lymphocytes Absolute Auto 0.8 X10*3/uL (1.2-4.9); Lymphocytes Percent Auto 14.9 % (20-40); Mean Corpuscular Hemoglobin 31.3 pg (27.0-33.0); Mean Corpuscular Volume 97.9 fL (80.0-98.0); Mean Platelet Volume 9.4 fL (9.4-12.3); Monocytes Absolute Auto 0.3 X10*3/uL (0.1-1.2); Monocytes Percent Auto 6.5 % (2-11); Neutrophils Percent Auto 75.9 % (45-73); Platelet Count 371 X10*3/uL (160-400); White Blood Count 5.2 X10*3/uL (4.8-10.8)
[2025-04-05 11:46] LABS: Alanine Aminotransferase 14 U/L (0-31); Alkaline Phosphatase 62 U/L (39-117); Anion Gap 12 (12-20); Aspartate Amino Transferase 26 U/L (5-31); Bilirubin Total 0.4 mg/dL (0.0-1.0); Blood Urea Nitrogen 16 mg/dL (9-16); Calcium 10.2 mg/dL (8.4-10.2); Carbon Dioxide 28 mmol/L (22-29); Chloride 106 mmol/L (96-108); Cholesterol 180 mg/dL (<200); Estimated Glomerular Filt Rate > 60; Glucose Fasting 86 mg/dL (60-99); HDL Cholesterol 57 mg/dL (>40); LDL Cholesterol Calculated 93 mg/dL (<100); Potassium 4.7 mmol/L (3.3-5.1); Sodium 141 mmol/L (135-145); Total Protein 7.4 g/dL (6.5-8.0); Triglycerides 150 mg/dL (<150)
[2025-04-05 11:58] LABS: Ferritin 42 ng/mL (10-250)
[2025-04-05 12:07] LABS: TSH reflex Free T4 0.55 uIU/mL (0.32-4.0)
[2025-04-05 12:08] LABS: Vitamin B12 283 pg/mL (200-900)
[2025-04-12 16:03] LABS: Vitamin D 25-OH, D2 <4 ng/mL; Vitamin D 25-OH, D3 32 ng/mL; Vitamin D 25-OH, Total 32 ng/mL (30-100)
== END 2025-04-05 09:19 | disposition home or self-care (01) ==
LOC: HO.HMGCLDS 09:18
PROVIDERS: PCP Internal Medicine; Referring Provider Internal Medicine; Visit Provider Internal Medicine
DX: I10 Essential (primary) hypertension (principal); F33.42 Major depressive disorder, recurrent, in full remission; E55.9 Vitamin D deficiency, unspecified; R79.89 Other specified abnormal findings of blood chemistry; M06.9 Rheumatoid arthritis, unspecified; E66.01 Morbid (severe) obesity due to excess calories; M79.644 Pain in right finger(s); K26.9 Duodenal ulcer, unspecified as acute or chronic, without hemorrhage or perforation
CPT/HCPCS: 36415; 80053; 80061; 82306; 82607; 82728; 84443; 85025

== ENCOUNTER 2025-05-09 13:26 | Outpatient (AMB) | payer OTHER, SELFPAY ==
[2025-05-09 13:36] VITALS: BP 128/72; PULSE 63; O2SAT 97; BMI 38.8
--- NOTE | 2025-05-09 13:36 | A.OFFPC_ITS ---
Vital Signs 05/09/25 13:36 Height 5 ft 7 in Weight 248 lb BMI 38.8 BP 128/72 Blood Pressure Location Lt brachial Position Sitting Pulse 63 Pulse Source Pulse Oximeter Pulse Oximetry (%) 97 Intake Visit Reasons: Annual PE Allergies No Known Allergies Allergy (Verified 05/09/25 13:39) Medication List - Last Reconciled 05/09/25 by Benson Marroquin MD atenolol 25 mg PO DAILY 90 days celecoxib mg PO DAILY cyclobenzaprine 10 mg PO BEDTIME PRN folic acid 1 mg PO DAILY hydroxychloroquine 200 mg PO DAILY methotrexate sodium 25 mg PO QWEEK multivitamin 1 tab PO DAILY omeprazole 20 mg PO DAILY paroxetine HCl 20 mg PO QAM 90 days tofacitinib 5 mg PO BID tramadol mg PO PRN Tobacco use date assessed: 10/25/24 Fall risk assessment: No Falls in past year Last assessed Fall Risk: 05/09/25 Dental Screening Dental Screen Date: 10/25/24 HPI Annual PE HPI Details - The patient is a 65-year-old female pr esenting for a routine physical examination. - She has a history of hypertension for which she has been taking Atenolol. - She reports anxiety and depression man aged with Paroxetine - The patient has rheumatoid arthritis t reated with Methotrexate, Cyclobenzaprine, Hydroxychloroquine, under care of Dr. Wesley - GERD is controlled with Omeprazole. - The patient reports a toenail fungal i nfection suspected by her sister; she noted it affects multiple toes and has no associated pain. - Laboratory results from March indicated mild anemia with hemoglobin at 11.9 g/dL and a note of low vitamin B12 levels. - She was advised to start vitamin B12 s upplements every other day. - The patient is due for a tetanus boost er and may consider the updated pneumonia vaccination due to her immunosuppressive therapy. - There are no recent gastrointestinal c oncerns after a colonoscopy and EGD in June 2022. 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 - Tetanus booster recommended as last on e was in 2012. - Planned to reach an OBGYN following ma mmogram results. - Pneumonia vaccine discussed due to imm unosuppressive therapy; new version available since last vaccination in 2007. - Vitamin B12 supplementation advised du e to low levels. - Continuation of Vitamin D supplementat ion, as levels were normal but beneficial. - Routine follow-up every six months for overall health management. - continue meds [place] [facility] - Dr. Mccallum. For rheumatic arthritis - Dr. 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 - No imaging or other diagnostic tests d iscussed. Patient Instructions - Continue current medications for hyper tension, depression, anxiety, GERD, and rheumatoid arthritis. - Start vitamin B12 supplement every oth er day. - Continue taking Vitamin D as currently done. - Schedule and attend OBGYN appointment following mammogram results. - Consider tetanus booster and updated p neumonia vaccine due to immunosuppressive therapy. Review of Systems - General: No fever no chills - Neurological: No headaches no dizzin ess - Ear nose throat: No sore throat no hearing difficulty no ear pain - Cardiovascular: No syncope, no chest pain, no palpitations - Gastrointestinal: No nausea vomiting or diarrhea - Endocrine: No polyuria polydipsia no heat intolerance - Genitourinary: No dysuria - Skin: No new complaints Physical Exam General: Cooperative, healthy appearing, comfortable, no acute distress Orientation: Patient oriented x3 Head: Normal to inspection Ears: Within normal limit visually Nose: Normal external nose present Face and sinus: Normal facial exam Eyes: Appearance normal, extraocular movement intact pupils reactive; last checked last month Neck: Normal visual inspection and supple Respiratory: Normal respiratory effort and able to speak in complete sentences. Clear to auscultation, no stridor Cardiovascular: S1 and S2 RRR; no chest pain, palpitations Breast exam declined by the patient GI: Normal to inspection. Soft to palpation and nontender; no nausea, vomiting, diarrhea, constipation Skin: Turgor normal, no acute findings; no rashes, no moles Neuro: Patient oriented x3, motor sensory intact, balance intact, tandem pass Extremities: Normal to inspection; toenails appear affected by fungus, no pain reported no swelling [facility] Medical History Vitamin D deficiency Acute rheumatic arthritis Hypertension, essential Depression, major, recurrent Surgical History Hx of colonoscopy History of esophagogastroduodenoscopy (EGD) History of foot surgery Family History Father Myocardial infarction Mother Hyperlipidemia Brother No problems noted. Sister No problems noted. 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 Cognitive needs: No Hearing needs: No Vision needs: Yes Questionnaire Thrive Questionnaire Date Thrive assessed: 10/25/24 I am a: Patient What is your living situation today?: I have a steady place to live Within the past 12 months, did the food you bought not last and you didn't have the money to get more?: Never true Within the past 12 months, did you worry whether your food would run out before you got money to buy more?: Never true Do you have trouble paying for medicines?: No Do you have trouble getting transportation to medical appointments?: No Do you have trouble paying your heating and electricity bill?: No Do you have trouble taking care of your child, family member or friend?: No Do you have trouble with day-to-day activities such as bathing, preparing meals, shopping, managing finances, etc.?: No Are you currently unemployed and looking for a job?: No Are you interested in more education?: No Please select the resources that you would like help with: None Currently or been in a relationship where the following occur: No concerns reported THRIVE Score: 0 DESTINY-7 AMB Questionnaire DESTINY-7 Date DESTINY - 7 assessed: 10/25/24 Source: Developed by Drs. Steve Birmingham, Desiree Meek, Waqar St and colleagues, with an educational gi from [employer]. Physical exam (Primary Care) Vital Signs: Last Vital Signs Pulse 63 05/09/25 13:36 BP 128/72 05/09/25 13:36 Pulse Ox 97 05/09/25 13:36 BMI result Body Mass Index 38.8 Tobacco/Smoking Status: Tobacco use Status Tobacco use date assessed 10/25/24 05/09/25 13:38 Patient Tobacco Use Status Former Tobacco user 05/09/25 13:38 Tobacco use type Cigarette 05/09/25 13:38 e-Cigarette/Vaping Use Never Used 05/09/25 13:38 Thrive Assessment: Date of Thrive Assessment Date Thrive assessed 10/25/24 05/09/25 13:38 Currently or been in a relationship where the following occur: No concerns reported Immunizations pneumoc 20-west conj-dip cr(PF) 0.5 mL IM syringe Performing Provider: Benson Marroquin MD Performing Location: [facility] Administered by: Chadd Del Valle CMA on 05/09/25 14:17 Dose Route Admin Location Dispensed Lot Number Expiration Date [facility] Welt Rougher 0.5 mL IM Left Deltoid 0.5 mL [id number] 04/11/26 Shoto /Humanoid Total Dispensed Waste 0.5 mL 0 % VIS Given Date VIS Provided VIS Publication Date 05/09/25 Single Vaccine 25 Eligibility Eligibility Date Funding Source Not [facility] Eligible 05/09/25 Private Boostrix Tdap 2.5 Lf unit-8 mcg-5 Lf/0.5 mL intramuscular syringe Performing Provider: Benson Marroquin MD Performing Location: [facility] Administered by: Chadd Del Valle CMA on 05/09/25 14:17 Dose Route Admin Location Dispensed Lot Number Expiration Date [facility] Welt Rougher 0.5 mL IM Right Deltoid 0.5 mL [id number] 06/21/27 [id number] Detectent Total Dispensed Waste 0.5 mL 0 % VIS Given Date VIS Provided VIS Publication Date 05/09/25 Single Vaccine 21 Eligibility Eligibility Date Funding Source Not [facility] Eligible 05/09/25 Private Coding Level of Care Code Est Pt Level 3 (37241) Est Pt Prev Care 40-64y(32152) Diagnoses Encounter for general adult medical examination with abnormal findings Z00.01 Rheumatoid arthritis of other site, unspecified whether rheumatoid factor present M06.9 Rheumatoid arthritis location: other site Rheumatoid factor presence: unspecified presence Morbid obesity due to excess calories E66.01 Hypertension, essential I10 Recurrent major depressive disorder, in full remission F33.42 Active/Remission status: in full remission Immunizations incomplete Z28.39 Assessment & Plan Assessment & Plan (1) Encounter for general adult medical examination with abnormal findings: Code(s): Z00.01 - Encounter for general adult medical examination with abnormal findings Category: Medical (2) Rheumatoid arthritis: Code(s): M06.9 - Rheumatoid arthritis, unspecified Category: Medical Qualifiers: Rheumatoid arthritis location: other site Rheumatoid factor presence: u nspecified presence Qualified Code(s): M06.9 - Rheumatoid arthritis, unspecified (3) Morbid obesity due to excess calories: Code(s): E66.01 - Morbid (severe) obesity due to excess calories Category: Medical (4) Hypertension, essential: Code(s): I10 - Essential (primary) hypertension Category: Medical (5) Depression, major, recurrent: Code(s): F33.9 - Major depressive disorder, recurrent, unspecified Category: Medical Qualifiers: Active/Remission status: in full remission Qualified Code(s): F33.42 - Major depressive disorder, recurrent, in full remission (6) Immunizations incomplete: Code(s): Z28.39 - Other underimmunization status Category: Medical Plan - The patient is a 65-year-old female presenting for a routine physical examination. - She has a history of hypertension for which she has been taking Atenolol. - She reports anxiety and depression managed with Paroxetine - The patient has rheumatoid arthritis treated with Methotrexate, Cyclobenzaprine, Hydroxychloroquine, under care of Dr. Wesley - GERD is controlled with Omeprazole. - The patient reports a toenail fungal infection suspected by her sister; she noted it affects multiple toes and has no associated pain. - Laboratory results from March indicated mild anemia with hemoglobin at 11.9 g/dL and a note of low vitamin B12 levels. - She was advised to start vitamin B12 supplements every other day. - The patient is due for a tetanus booster and may consider the updated pneumonia vaccination due to her immunosuppressive therapy. - There are no recent gastrointestinal concerns after a colonoscopy and EGD in June 2022. 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 - Tetanus booster recommended as last one was in 2012. - Planned to reach an OBGYN following mammogram results. - Pneumonia vaccine discussed due to immunosuppressive therapy; new version available since last vaccination in 2007. - Vitamin B12 supplementation advised due to low levels. - Continuation of Vitamin D supplementation, as levels were normal but beneficial. - Routine follow-up every six months for overall health management. - continue med [place] [facility] - Dr. Mccallum. For rheumatic arthritis - Dr. 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 - No imaging or other diagnostic tests discussed. Patient Instructions - Continue current medications for hypertension, depression, anxiety, GERD, and rheumatoid arthritis. - Start vitamin B12 supplement every other day. - Continue taking Vitamin D as currently done. - Schedule and attend OBGYN appointment following mammogram results. - Consider tetanus booster and updated pneumonia vaccine due to immunosuppressive therapy. Orders: Orders TDaP Immunization Today Z23 - Encounter for immunization Pneumococcal 20 Immunization Today Z23 - Encounter for immunization
== END 2025-05-09 14:09 | disposition home or self-care (01) ==
PROVIDERS: PCP Internal Medicine; Visit Provider Internal Medicine
DX: Z00.01 Encounter for general adult medical examination with abnormal findings (principal); M06.9 Rheumatoid arthritis, unspecified; E66.01 Morbid (severe) obesity due to excess calories; Z68.38 Body mass index [BMI] 38.0-38.9, adult; I10 Essential (primary) hypertension; F33.42 Major depressive disorder, recurrent, in full remission; Z28.39 Other underimmunization status; Z23 Encounter for immunization

== ENCOUNTER → 2025-05-09 13:26 | Outpatient (BNVA) | payer BC, SELFPAY | PROVIDERS: PCP Internal Medicine; Visit Provider Internal Medicine | DX: Z00.01 Encounter for general adult medical examination with abnormal findings (principal); Z23 Encounter for immunization; M06.9 Rheumatoid arthritis, unspecified; I10 Essential (primary) hypertension; F33.42 Major depressive disorder, recurrent, in full remission; E66.01 Morbid (severe) obesity due to excess calories; Z68.38 Body mass index [BMI] 38.0-38.9, adult; Z71.3 Dietary counseling and surveillance | CPT/HCPCS: 90471; 90677; 90715 ==

== ENCOUNTER → 2025-05-13 08:30 | Outpatient (BNV) | payer OTHER, SELFPAY | PROVIDERS: PCP Internal Medicine; Visit Provider Internal Medicine | DX: Z12.31 Encounter for screening mammogram for malignant neoplasm of breast (principal) | CPT/HCPCS: 77063; 77067 ==

== ENCOUNTER 2025-05-13 08:31 | Outpatient (REF) | payer OTHER, SELFPAY | END 2025-05-13 08:32 | disposition home or self-care (01) | LOC: HO.MAMMO 08:31 | PROVIDERS: PCP Internal Medicine; Visit Provider Internal Medicine | DX: Z12.31 Encounter for screening mammogram for malignant neoplasm of breast (principal) | CPT/HCPCS: 77063; 77067 ==

== ENCOUNTER 2025-08-29 12:46 | Day surgery (SDC) | payer OTHER, SELFPAY ==
[2025-08-27 09:22] VITALS: BMI 39.3
--- NOTE | 2025-08-27 10:29 | HO.ANESPROP2 ---
Documented by User: Nat Fontaine NP 08/27/25 10:31 HPI - Anesthesia Eval Consult details Narrative: 65 yr old female for upper endoscopy Rheumatoid arthritis treated with Methotrexate, Cyclobenzaprine, Hydroxychloroquine, under care of Dr. Maryjane HOUSER Active Problems Active Problems: All Active Problems Immunizations incomplete (Acute) Ganglion cyst of finger of right hand (Acute) Pain of right middle finger (Acute) Edema of left ankle (Acute) Asymptomatic superficial varicosities of both lower extremities (Acute) Morbid obesity due to excess calories (Acute) Rheumatoid arthritis (Acute) Encounter for general adult medical examination with abnormal findings (Acute) Elevated LFTs (Acute) Barretts esophagus (Acute) Celiac artery stenosis (Acute) Duodenal ulcer (Acute) Recurrent vomiting (Acute) Upper abdominal pain (Acute) Foul smelling urine (Acute) Vitamin D deficiency (Acute) Acute rheumatic arthritis (Acute) Hypertension, essential (Acute) Depression, major, recurrent (Acute) Past Medical History Medical History Vitamin D deficiency Acute rheumatic arthritis Hypertension, essential Depression, major, recurrent Family History Family History Father Myocardial infarction Mother Hyperlipidemia Brother No problems noted. Sister No problems noted. Paternal Grandfather Colon cancer Family history of problems with anesthesia: No Surgical History Surgical History Hx of colonoscopy History of esophagogastroduodenoscopy (EGD) History of foot surgery History of Problems with Anesthesia: No Social History Social History Housing: House Alcohol intake: current Alcohol intake frequency: holidays/special occasions only Patient Tobacco Use Status: Former Tobacco user Tobacco use type: Cigarette Years Smoked: 15 years e-Cigarette/Vaping Use: Never Used Have you been hit, kicked, punched, or otherwise hurt by someone within the past year? 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 Cognitive needs: No Hearing needs: No Vision needs: Yes Meds Allergies Allergy/AdvReac Type Severity Reaction Status Date / Time No Known Allergies Allergy Verified 05/09/25 13:39 Home Medications ?Medication ?Instructions ?Recorded ?Confirmed ?Last Taken ?Type folic acid 1 mg tablet 1 mg PO DAILY 08/14/20 08/29/25 07/14/22 History hydroxychloroquine 200 mg tablet 200 mg PO DAILY 08/14/20 08/29/25 07/14/22 History tofacitinib 5 mg tablet 5 mg PO BID 08/14/20 08/29/25 07/14/22 History multivitamin 1 tab PO DAILY 07/25/22 08/29/25 Unknown History cyclobenzaprine 10 mg tablet 10 mg PO BEDTIME PRN Muscle Spasm 01/23/23 08/29/25 Unknown History celecoxib 200 mg capsule 200 mg PO DAILY 01/03/25 08/29/25 08/28/25 History methotrexate sodium 2.5 mg tablet 25 mg PO QWEEK 01/03/25 08/29/25 08/23/25 History tramadol 50 mg tablet 50 mg PO DAILY PRN Pain 01/03/25 08/29/25 Unknown History Exam Height,Weight and Vital Signs: Height 5 ft 7 in Weight 113.852 kg Pertinent Lab Results Pertinent Lab Results: Laboratory Tests 04/05/25 09:28 WBC 5.2 RBC 3.80 L Hgb 11.9 L Hct 37.2 Plt Count 371 Sodium 141 Potassium 4.7 BUN 16 Creatinine 0.85 Assessment and Plan Final Anesthetic Review Family History of Problems with Anesthesia: No History of Problems with Anesthesia: No Documented by User: Keyanna Cook MD 08/29/25 14:06 [facility] Past Medical History Medical History Vitamin D deficiency Acute rheumatic arthritis Hypertension, essential Depression, major, recurrent Family History Family History Father Myocardial infarction Mother Hyperlipidemia Brother No problems noted. Sister No problems noted. Paternal Grandfather Colon cancer Surgical History Surgical History Hx of colonoscopy History of esophagogastroduodenoscopy (EGD) History of foot surgery Social History Social History Housing: House Alcohol intake: current Alcohol intake frequency: holidays/special occasions only Patient Tobacco Use Status: Former Tobacco user Tobacco use type: Cigarette Years Smoked: 15 years e-Cigarette/Vaping Use: Never Used Have you been hit, kicked, punched, or otherwise hurt by someone within the past year? 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 Cognitive needs: No Hearing needs: No Vision needs: Yes Meds Allergies Allergy/AdvReac Type Severity Reaction Status Date / Time No Known Allergies Allergy Verified 05/09/25 13:39 Home Medications ?Medication ?Instructions ?Recorded ?Confirmed ?Last Taken ?Type folic acid 1 mg tablet 1 mg PO DAILY 08/14/20 08/29/25 07/14/22 History hydroxychloroquine 200 mg tablet 200 mg PO DAILY 08/14/20 08/29/25 07/14/22 History tofacitinib 5 mg tablet 5 mg PO BID 08/14/20 08/29/25 07/14/22 History multivitamin 1 tab PO DAILY 07/25/22 08/29/25 Unknown History cyclobenzaprine 10 mg tablet 10 mg PO BEDTIME PRN Muscle Spasm 01/23/23 08/29/25 Unknown History celecoxib 200 mg capsule 200 mg PO DAILY 01/03/25 08/29/25 08/28/25 History methotrexate sodium 2.5 mg tablet 25 mg PO QWEEK 01/03/25 08/29/25 08/23/25 History tramadol 50 mg tablet 50 mg PO DAILY PRN Pain 01/03/25 08/29/25 Unknown History Exam Airway Mallampati Class: II TM Dist: >3cm Neck ROM: Full Heart: rrr Assessment and Plan Assessment Anesthesia Assessment: Anesthesia Plan Discussed and Chart Reviewed Final Anesthetic Review NPO: Yes ASA Class: III Final Preanesthetic Review: No Changes in Pt Med Stat, Meds/Allgs Chart Reviewed, Consent Obtained/Reviewed and Anes Risks/Benef Reviewed Patient Risk: Intermediate Procedure Risk: Low Anesthetic Plan Anesthetic Plan: MAC: and Agree w/ Assess. and Plan Disposition: Standard PACU
[2025-08-29 13:04] VITALS: BP 149/57; PULSE 55; RESP 18; TEMP 36.4; O2SAT 95; BMI 38.8
[2025-08-29] MEDS: Lactated Ringers 1,000 ML 100 ML IVCONT (13:25)
--- NOTE | 2025-08-29 13:28 | MHC.SHP ---
Pre-Procedural Eval Section A - 24 Hr Update-Section A only Date of Service: 08/29/25 Section B - Complete if H&P > 30 days Chief Complaint: Willett's esophagus with dysplasia, Details of Present Illness: Vitamin D deficiency Acute rheumatic arthritis Hypertension, essential Depression, major, recurrent Surgical History Hx of colonoscopy History of esophagogastroduodenoscopy (EGD) History of foot surgery Present Medications: see Short Stay Collaborative assessment Allergies: Allergies Allergy/AdvReac Type Severity Reaction Status Date / Time No Known Allergies Allergy Verified 05/09/25 13:39 Review of Systems Review of Systems Comment: Ten point ROS negative Exam Exam Comment: Gen appear: No acute distress HEENT: no icterus Chest: No overt resp distress Abd: soft, nontender, nondistended Psych: Stable affect, answering questions appropriately Neuro: A/Ox3 noted to move all extremities spontaneously Ext: no peripheral edema Plan Diagnosis/Plan: Unchanged I have reviewed the history and physical and performed a pertinent physical examination on my patient. No changes have occurred unless specified. Time Spent With Patient Time: Total time managing care of this patient today ____ minutes.
--- NOTE | 2025-08-29 16:06 | P.OP_ITS ---
Operative Note Operative Note Date of Service: 08/29/25 Narrative: Procedure: Esophagogastroduodenoscopy Endoscopist: Johanny Dye MD Indication: Willett's esophagus Anesthesia Provider: Dr Camilla Herr Anesthesia Type: MAC ?? EGD Procedure:?? The procedure, indications, preparation and potential complications were reviewed with the patient, who indicated understanding and gave written informed consent to proceed. A physical exam was performed. A distal attachment cap was affixed to the tip of the scope and the endoscope was introduced through the mouth, and advanced to the second part of duodenum. The mucosa was carefully examined on slow withdrawal of the endoscope. The patient tolerated the procedure well. There were no immediate complications.? ? EGD Findings:? * Esophagus:? Normal mucosa noted in the entire esophagus. The Z line was at 37 cm and irregular to 36 cm with two tongues extending up to 35 cm (Irving C1 M2). This was displaced by hiatal hernia with the diaphragmatic hiatus at 40 cm. Examination was conducted with high definition white light and NBI. Four quadrant jumbo forceps biopsies were taken at as per Amanda protocol at 35 cm, 36 and 37 cm for BE surveillance. * Stomach:? Normal mucosa was noted in the stomach. Retroflexion was performed in the cardia that showed Hill grade II hiatal hernia. One sessile polyp of size 6 mm noted in the distal cardia along the greater curvature. Jumbo forceps polypectomy was performed. The polyp was completely removed and retrieved. * Duodenum:? Normal mucosa was noted in the whole of the examined duodenum. ? EGD Impressions:? * R/o BE (biopsy) * Gastric polyp (forceps polypectomy) * Hiatal hernia * Normal stomach * Normal duodenum ?? Recommendations:?? * Follow biopsy results. Our office will call or send a letter with results within 7-10 days. * Continue PPI therapy. * Avoid NSAIDs. * If no dysplasia present, repeat upper endoscopy will be recommended in 5 years for surveillance of short-segment nondysplastic Willett's esophagus. Above has been reviewed with the patient. ?
[2025-08-29 16:09] VITALS: BP 122/67; PULSE 62; RESP 166; TEMP 36.1; O2SAT 95
[2025-08-29 16:24] VITALS: BP 142/73; PULSE 61; RESP 18; TEMP 36.1; O2SAT 97
== END 2025-08-29 16:38 | disposition home or self-care (01) ==
PROVIDERS: PCP Internal Medicine; Visit Provider Internal Medicine
PROC: 0DJ08ZZ Inspection of Upper Intestinal Tract, Via Natural or Artificial Opening Endoscopic (ICD-10-PCS; CPT 43235; principal; 2025-08-29 15:10)
DX: K22.70 Barrett's esophagus without dysplasia (principal); K26.9 Duodenal ulcer, unspecified as acute or chronic, without hemorrhage or perforation; K31.7 Polyp of stomach and duodenum; K44.9 Diaphragmatic hernia without obstruction or gangrene
CPT/HCPCS: 43239; 88305; 88313; 88342; J2003; J2704

== ENCOUNTER → 2025-08-29 12:46 | Outpatient (BNV) | payer OTHER, SELFPAY | PROVIDERS: PCP Internal Medicine; Visit Provider Internal Medicine | DX: K22.70 Barrett's esophagus without dysplasia (principal); K31.7 Polyp of stomach and duodenum | CPT/HCPCS: 43239 ==